=== PATIENT | female | born 1990 | race Caucasian/White ===

== ENCOUNTER 2016-05-26 16:02 | Emergency (ER) | payer OTHER ==
[2016-05-26] MEDS ORDERED: KETOROLAC 60 MG/2 ML VIAL IM ONE (18:33)
[2016-05-26] MEDS ORDERED: TDaP 0.5 ML VIAL IM.VACC ONE (18:34)
[2016-05-26] MEDS ORDERED: KETOROLAC 30 MG/ML VIAL ONE (18:38)
== END 2016-05-26 19:04 | disposition home or self-care (01) ==
LOC: ER 16:02
DX: S60.811A Abrasion of right wrist, initial encounter (principal); S80.02XA Contusion of left knee, initial encounter; S80.12XA Contusion of left lower leg, initial encounter; V49.49XA Driver injured in collision with other motor vehicles in traffic accident, initial encounter; Y92.488 Other paved roadways as the place of occurrence of the external cause; Z23 Encounter for immunization
CPT/HCPCS: 71010; 90471; 96374